=== PATIENT | female | born 1990 | race Caucasian/White ===

== ENCOUNTER 2020-05-02 07:57 | Inpatient (IN) | payer OTHER ==
[~2020-05-02] VITALS: Ht 170.2 cm; Wt 102.0 kg
[~2020-05-02 07:57] MED LIST: IRON325 M1 PO; PRENATAL MULTI1 EACH PO
--- NOTE | 2020-05-05 09:49 | NUR ---
05/05/20 0949 Michele,Lucina 0931 PT ARRIVED TO ROOM AND PT AT BEDSIDE WITH FBC RN. PT DENIES PAIN AND NAUSEA. VSS. 0943 PT REPORTS UNABLE TO MOVE LEGS OR FEET, SPINAL LEVEL T-7. BABY TO CHEST WITH FBC RN. HOB INCREASED SLIGHTLY, PT CONTINUES TO DENY NAUSEA AND PAIN. NO OTHER CONCERNS AT THIS TIME. IV INFUSING LR WITH 20 PIT, IV SITE WNL.
--- NOTE | 2020-05-06 07:46 | OR ---
[facility] [address] [place], [place] [address] Signed DATE OF OPERATION: 05/05/2020 SURGEON: Aura Bunn MD COMMERCIAL ACCOUNT EXECUTIVE: Naren Sandy MD. PREOPERATIVE DIAGNOSES: Term , previous section, right adnexal mass, preeclampsia without severe features. POSTOPERATIVE DIAGNOSES: Term , previous section, right adnexal mass, preeclampsia without severe features, delivered, right ovarian dermoid. PROCEDURE: Repeat section with low segment transverse uterine incision, lysis of adhesions, right oophorectomy. ANESTHESIA: Spinal. ESTIMATED BLOOD LOSS: 600 mL. DRAINS: Alvarez catheter. INDICATIONS AND FINDINGS: The patient is a 29-year-old female, 3, para 2 now at 37 weeks, who was admitted for repeat section for preeclampsia without severe features. Patient had a known right ovarian mass during her . She has been asymptomatic. At the time of surgery, she was found to have omental adhesions to the anterior peritoneum. The bladder peritoneum was also adhesed to the anterior wall of the uterus. The left tube and ovary were normal. The right tube was normal, but the right ovary was pretty much completely replaced by a right dermoid. She was delivered of a little boy from the ROT position via lower segment transverse incision with Apgars 8/9, wt 7'4". Electronically Signed By: AURA BUNN MD 05/06/20 0746 PATIENT NAME: REYNOLD BARTLETT OPERATIVE REPORT DATE OF : [birth year] REPORT #: [id number] PHYSICIAN: AURA BUNN MD PCP: KINGSLEY LEYVA PAC REPORT IS CONFIDENTIAL AND NOT TO BE RELEASED WITHOUT AUTHORIZATION [facility] [address] [place], [place] [address] Signed DESCRIPTION OF PROCEDURE: The patient was prepped and draped in the supine position. A repeat Pfannenstiel skin incision was made and carried down through the fascia. The incision was extended laterally. The inferior and superior fascial flaps were then created. The muscles were sharply divided and the peritoneum entered. The adhesions were immediately noted. The muscles were divided down through the pyramidalis. The peritoneum was then incised as well superiorly and inferiorly. The incision was completed bluntly. It was felt that even with the adhesions of the omentum, the Shawn could be placed. This was done and the incision on the uterus made at the upper aspect of the peritoneal reflection. The uterine wall was fairly thin. The baby was delivered with the above findings and handed off to the pediatric staff in attendance. The placenta was removed manually. The uterus was explored with a lap tape assuring no remaining fragments. The edges of the incision were identified and closed with two layers using 0 Monocryl. The first layer was a running locking stitch and the second was a vertical imbricating stitch. The abdomen was irrigated and inspected and it was just raw surfaces over the surface of the uterus. The uterine incision area was packed and the left tube and ovary were identified and were normal. The right was identified and the tube was normal, but there was a cyst approximately 4 cm in diameter. The ovarian stroma over the cyst was then incised using a knife. An attempt was made to separate the ovarian stroma from the cyst, but it was extremely thin. Clear fluid was seen to be emanating from the cyst even though it was attempted to keep it intact. As further dissection was done, it was clear this was a dermoid with hair and sebaceous material seen. There was no evidence of any normal tissue in the ovary. Because of this, the decision was made to proceed with removal. The infundibular ligament and utero-ovarian pedicle were clamped x2 and divided. This was followed by free tie of 0 Vicryl followed by suture ligature of 0 Vicryl. Following this, the abdomen was irrigated, inspected, and there were raw areas as well as some bleeding points over the peritoneal reflection. The bleeding points were controlled with cautery. This layer was then also sprayed with Tisseel. The peritoneum was identified and the omental adhesions were identified and clamped with Lydia clamps and divided. Free ties of 2-0 chromic were used to tie off the omental adhesions. An ACell graft was laid over the lower segment to aid in healing. The peritoneum was closed with a running suture of 3-0 Vicryl. The muscles were then brought together with interrupted sutures of 0 Vicryl. Bleeding points were controlled with cautery. This layer was irrigated, inspected, and good hemostasis was noted. The remaining Tisseel was sprayed over the muscles. This was followed by Acell powder to aid in healing. The fascia was closed from each angle to midline with running suture of 0 Vicryl. The subcutaneous tissue was irrigated and bleeding points controlled with cautery. The deep space was closed with interrupted sutures of 3-0 Vicryl. The skin was closed with evie. All sponge and needle counts were correct. She tolerated the procedure well. She was taken to the Electronically Signed By: AURA BUNN MD 05/06/20 0746 PATIENT NAME: REYNOLD BARTLETT OPERATIVE REPORT DATE OF : [birth year] REPORT #: [id number] PHYSICIAN: AURA BUNN MD PCP: KINGSLEY LEYVA PAC REPORT IS CONFIDENTIAL AND NOT TO BE RELEASED WITHOUT AUTHORIZATION [address] [place] [address] Signed recovery room in good condition. MD RAJAN Bray/ESVIN /[id number] cc: Naren Sandy MD Copies: NAREN SANDY MD ~ Electronically Signed By: AURA BUNN MD 05/06/20 0746 PATIENT NAME: REYNOLD BARTLETT OPERATIVE REPORT DATE OF : [birth year] REPORT #: [id number] PHYSICIAN: AURA BUNN MD PCP: KINGSLEY LEYVA PAC REPORT IS CONFIDENTIAL AND NOT TO BE RELEASED WITHOUT AUTHORIZATION
--- NOTE | 2020-05-06 07:55 | PR ---
[facility] [address] [facility] [place], [place] [address] Signed PP Progress Notes Datetime Report Generated by CAL: 05/06/2020 07:55 SUBJECTIVE: [id number] Pain: Within normal limits Nausea/Vomiting: Denies Flatus: No Vital Signs: [id number] Vital Signs: Reviewed; Within Normal Limits EXAM: [id number] Cardiovascular: Normal Respiratory: Normal Abdomen/Uterus: Abnormal Lochia: Normal Vulva/Perineum: Not Done Breasts: Not Done CVA Tenderness: Not Done Extremities: Normal Incision: Normal Progress: Normal Exam Comments: Abdomen with active BS. Fundus firm, NT @ U-1. H/H 12/35.3, WBC 12.2, plat 126k IMPRESSION/PLAN/PROCEDURES: [id number] Impression: Normal progression Other Plans: ambulate, shower Progress Notes: Doing well. Will increase activity. Signing Physician: Aura Bunn MD Copies: ~ *Electronically Signed* 05/06/20 0755 AURA BUNN MD PATIENT NAME: REYNOLD BARTLETT PROGRESS NOTE DATE OF : [birth year] PHYSICIAN: AURA BUNN MD RPT #: [id number] REPORT IS CONFIDENTIAL AND NOT TO BE RELEASED WITHOUT AUTHORIZATION
--- NOTE | 2020-05-06 15:42 | PATH ---
[facility] [address] [place], [place] [address] Signed SPECIMEN(S): A RIGHT OVARY WITH DERMOID CYST SPECIMEN SOURCE: A. RIGHT OVARY WITH DERMOID CYST CLINICAL HISTORY: Pre: Right adnexal mass, repeat . Post: Right dermoid cyst and ovary. FINAL PATHOLOGIC DIAGNOSIS: Ovary with cyst, right, oophorectomy: - Mature cystic teratoma (dermoid cyst). - Background ovary with cystic follicles. NAL:cml:C2NR MICROSCOPIC EXAMINATION: Histologic sections of all submitted blocks are examined by light microscopy. These findings, together with the gross examination, support the pathologic diagnosis. GROSS DESCRIPTION: The specimen, labeled "MH," and designated on the requisition "right ovary with dermoid cyst," is received in formalin and consists of a 39 gram cystic ovary (6.4 x 4.2 x 2.6 cm) with a pink-paez to hemorrhagic, variegated cut surface containing a yellow-paez grumous material, hair, and areas of calcification. Represent sections are some in cassettes (A1-A2). AC (under the direct supervision of a pathologist) The Gross Description was prepared using a voice recognition system. The report was reviewed for accuracy; however, sound-alike word errors, addition and/or deletions may occur. If there is any question about this report, please contact Client Services. PERFORMING LABORATORY: The technical component was performed by [employer], [address] [place] [address] (Unemployment Claims Adjudicator: Clari Maldonado MD; CLIA# [id number]). [facility], [address] [address] (CLIA# [id number]). Diagnostician: Tonie Laura MD Pathologist PATIENT NAME: REYNOLD BARTLETT PATHOLOGY DATE OF : [birth year] REPORT #: [id number] PHYSICIAN: AURELIANO PATHOLOGY PCP: KINGSLEY LEYVA REPORT IS CONFIDENTIAL AND NOT TO BE RELEASED WITHOUT AUTHORIZATION [address] [place], [place] [address] Signed Electronically Signed 05/06/2020 Copies: ~ PATIENT NAME: REYNOLD BARTLETT PATHOLOGY DATE OF : [birth year] REPORT #: [id number] PHYSICIAN: AURELIANO PATHOLOGY PCP: KINGSLEY LEYVA REPORT IS CONFIDENTIAL AND NOT TO BE RELEASED WITHOUT AUTHORIZATION
--- NOTE | 2020-05-07 09:31 | PR ---
[facility] [address] [facility] [place], [place] [address] Signed PP Progress Notes Datetime Report Generated by CAL: 05/07/2020 09:31 SUBJECTIVE: [id number] Pain: Within normal limits Nausea/Vomiting: Denies Flatus: Yes Vital Signs: [id number] Vital Signs: Reviewed Notable Details: occ mild elevation of BP EXAM: [id number] Cardiovascular: Not Done Respiratory: Not Done Abdomen/Uterus: Abnormal Lochia: Normal Vulva/Perineum: Not Done Breasts: Not Done CVA Tenderness: Not Done Extremities: Normal Incision: Not Applicable Progress: Normal Exam Comments: Abdomen with active BS. Fundus firm, NT @ U-1. IMPRESSION/PLAN/PROCEDURES: [id number] Impression: Normal progression Plan: Remove evie; Discharge Other Plans: ambulate, shower Procedures: None Progress Notes: Doing well. She is ready for D/C. Signing Physician: Aura Bunn MD Copies: ~ *Electronically Signed* 05/07/20 0931 AURA BUNN MD PATIENT NAME: REYNOLD BARTLETT PROGRESS NOTE DATE OF : [birth year] PHYSICIAN: AURA BUNN MD RPT #: [id number] REPORT IS CONFIDENTIAL AND NOT TO BE RELEASED WITHOUT AUTHORIZATION
== END 2020-05-07 10:30 | disposition home or self-care (01) | DRG 788 ==
LOC: FBC 05-05 05:35
PROVIDERS: ADMIT Obstetrics & Gynecology
PROC: 0UT00ZZ Resection of Right Ovary, Open Approach (ICD-10-PCS; 2020-05-05)
PROC: 10D00Z1 Extraction of Products of Conception, Low, Open Approach (ICD-10-PCS; principal; 2020-05-05 08:00)
DX: O34.211 Maternal care for low transverse scar from previous cesarean delivery (principal); N85.8 Other specified noninflammatory disorders of uterus; Z3A.37 37 weeks gestation of pregnancy; Z37.0 Single live birth; O14.04 Mild to moderate pre-eclampsia, complicating childbirth; O32.2XX0 Maternal care for transverse and oblique lie, not applicable or unspecified; O99.89 Other specified diseases and conditions complicating pregnancy, childbirth and the puerperium; D27.0 Benign neoplasm of right ovary; O69.81X0 Labor and delivery complicated by cord around neck, without compression, not applicable or unspecified; O99.214 Obesity complicating childbirth; E66.9 Obesity, unspecified; O26.03 Excessive weight gain in pregnancy, third trimester
CPT/HCPCS: 01961; 36415; 85027; A9270; J0690; J1885; J2001; J2274; J2405; J2590; J7121

== ENCOUNTER 2022-09-08 06:00 | Day surgery (SDC) | payer OTHER ==
[~2022-09-08] VITALS: Ht 170.2 cm; Wt 78.6 kg
[2022-09-08] MEDS ORDERED: NUVARING VAGIN1 EACH VAGINAL (06:19)
--- NOTE | 2022-09-08 07:52 | NUR ---
09/08/22 0752 Anamika Villavicencio 9305-PATIENT ARRIVED TO PACU ON 6L MASK NONAROUSABLE ORAL AIRWAY IN PLACE. RN DOING JAW THRUST TO MAINTAIN OPEN AIRWAY. SR. IVF INFUSING. JERROD PAD CDI 0750-PATIENTS HEAD REPOSITIONED TO LEFT SIDE PATIENT MAINTAING AIRWAY WITH ORAL AIRWAY IN PLACE. 6L MASK RR EVEN 100%
--- NOTE | 2022-09-08 07:57 | NUR ---
VISTED WITH PT PRIOR TO SURGERY. WAS WITH PT IN ROOM. PT EXPRESSED BEING TIRED. PT AND SHARED THEY WERE COMFORTABLE WITH PROCEDURE. NURSE CAME IN TO CHECK ON PT. PRAYED WITH UT, , AND NURSE.
--- NOTE | 2022-09-08 08:20 | NUR ---
0820: PT ARRIVES TO DS TREATMENT ROOM FROM PACU VIA STRETCHER AWAKE. PT RATES PAIN 1/10 AND "CRAMPY" AND DENIES NAUSEA. PT PROVIDED ICED WATER AND PUDDING. SPOUSE AT BEDSIDE ON ARRIVAL, DC CRITERIA EXPLAINED AND CALL LIGHT WITHIN REACH. 0857: PT USES CALL LIGHT TO ALERT RN OF URGE TO VOID. PT SITS AT SIDE OF BED PRIOR TO STANDING, DENIES ANY DIZZINESS OR NAUSEA WITH POSITION CHANGE. STEADY GAIT WITH RN ASSIST TO BATHROOM. PT ABLE TO VOID 700 MLS RED URINE WITH NO CLOTS PRESENT, PROVIDED NEW JERROD PAD AND MESH PANTIES. PT BACK TO STRETCHER AND PROVIDED WARM BLANKETS. CALL LIGHT WITHIN REACH, SPOUSE REMAINS AT BEDSIDE.
[2022-09-08] MEDS ORDERED: IBUPROFEN800 MG PO (08:49)
[2022-09-08] MEDS ORDERED: HYDROCODON-ACE1 EA10 PO (08:49)
--- NOTE | 2022-09-08 10:03 | NUR ---
0927: PT CONT TO DENY NAUSEA, TOLERATES PO. RATES PAIN 1/10 AND STATES, "MORE SO DISCOMFORT THAN PAIN." PT DRESSES SELF WITH SPOUSE IN ROOM AND OPENS CURTAIN WHEN FINISHED. DC INSTRUCTIONS PRESENTED VERBALLY AND WRITTEN TO PT AND SPOUSE. PT AWARE OF NEED TO TAKE PAIN SCRIPT TO PHARMACY TO HAVE FILLED. PT DC FROM DS TREATMENT ROOM VIA WC TO SPOUSE WAITING IN PERSONAL VEHICLE AT MAIN HOSPITAL ENTRANCE TO HOME.
--- NOTE | 2022-09-09 16:15 | PATH ---
[facility] [address] [place], [place] [address] Signed SPECIMEN(S): A ENDOMETRIAL CURETTINGS AND POLYP SPECIMEN SOURCE: A. ENDOMETRIAL CURETTINGS AND POLYP CLINICAL HISTORY: Menometrorrhagia. Hysteroscopy DC. FINAL PATHOLOGIC DIAGNOSIS: Endometrial curettings and polyp: - Benign early secretory endometrium, negative for atypical features or evidence of malignancy. - Focal polypoid endometrium with prominent fragments of benign muscularis propria. JVR:nathaly:C2NR MICROSCOPIC EXAMINATION: Histologic sections of all submitted blocks are examined by light microscopy. These findings, together with the gross examination, support the pathologic diagnosis. GROSS DESCRIPTION: The specimen, labeled "MH, endometrial curettings and polyp," is received in formalin and consists of irregular shaped, pink-paez, membranous tissue fragments that aggregate measure 3.0 x 2.5 x 0.5 cm. Specimen is entirely submitted in cassettes (A1-A2). JS (under the direct supervision of a pathologist) The Gross Description was prepared using a voice recognition system. The report was reviewed for accuracy; however, sound-alike word errors, addition and/or deletions may occur. If there is any question about this report, please contact Client Services. PERFORMING LABORATORY: The technical component was performed by [employer], [address] [place] [id number] (CLIA# [id number]). Professional interpretation was performed by [facility], [address] [place] [id number] (CLIA#: [id number]). Diagnostician: Lc Nicholson MD Pathologist Electronically Signed 09/09/2022 PATIENT NAME: REYNOLD BARTLETT PATHOLOGY DATE OF : [birth year] REPORT #: [id number] PHYSICIAN: AURELIANO PATHOLOGY PCP: KINGSLEY LEYVA PAC REPORT IS CONFIDENTIAL AND NOT TO BE RELEASED WITHOUT AUTHORIZATION [address] [address] Signed Copies: ~ PATIENT NAME: REYNOLD BARTLETT PATHOLOGY DATE OF : [birth year] REPORT #: [id number] PHYSICIAN: AURELIANO PATHOLOGY PCP: KINGSLEY LEYVA PAC REPORT IS CONFIDENTIAL AND NOT TO BE RELEASED WITHOUT AUTHORIZATION
--- NOTE | 2022-09-12 18:24 | OR ---
[facility] [address] [facility] [place], [place] [address] Signed DATE OF OPERATION: 09/08/2022 SURGEON: Aura Bunn MD PREOPERATIVE DIAGNOSIS: Menometrorrhagia. POSTOPERATIVE DIAGNOSIS: Menometrorrhagia, pending pathology. PROCEDURE: Hysteroscopy with resection of endometrial lesions. ANESTHESIA: General LMA. ESTIMATED BLOOD LOSS: Minimal. DRAINS: None. INDICATIONS AND FINDINGS: The patient is a 32-year-old female, who has been using the NuvaRing for control and had done well for quite some time but recently developed abnormal bleeding. Ultrasound was done, which showed quite a bit of thickening of the endometrium. It was felt this probably represented a polyp. At the time of surgery, the uterus was normal size and no adnexal masses were appreciated. The uterus sounded to 9 cm. On hysteroscopy, there were polypoid lesions across the anterior and posterior fundus and around both of the tubal orifices. DESCRIPTION OF PROCEDURE: The patient was prepped and draped in the dorsal lithotomy position. A weighted speculum was placed. The anterior lip of the cervix was visualized and grasped with a single-tooth tenaculum. The cavity was sounded to 9 cm. The endocervical canal was then dilated to a #8 dilator. MyoSure device was then placed. The uterus was evaluated with the above findings. The MyoSure Lite was then introduced and the polypoid lesions across the anterior and posterior fundus were resected. Following this, it did appear that the cavity was fairly regular and clean. The procedure was then terminated. The instruments removed from the uterus. The tenaculum was removed. There was some Electronically Signed By: AURA BUNN MD 09/12/22 1824 PATIENT NAME: REYNOLD BARTLETT OPERATIVE REPORT DATE OF : [birth year] REPORT #: [id number] PHYSICIAN: AURA BUNN MD PCP: RADHA COSTA REPORT IS CONFIDENTIAL AND NOT TO BE RELEASED WITHOUT AUTHORIZATION [facility] [address] [place] [address] Signed bleeding from the tenaculum sites, which did not respond to pressure. Because of this, eenoux-ja-azmni sutures of 0-chromic were placed to control bleeding from the tenaculum sites. The patient was taken to the recovery room in good condition. All sponge and needle counts were correct. Aura Bunn MD PJW/MODL /[id number] cc: Radha Costa PA-C Copies: RADHA COSTA ~ Electronically Signed By: AURA BUNN MD 09/12/22 1824 PATIENT NAME: REYNOLD BARTLETT OPERATIVE REPORT DATE OF : [birth year] REPORT #: [id number] PHYSICIAN: AURA BUNN MD PCP: RADHA COSTA PAC REPORT IS CONFIDENTIAL AND NOT TO BE RELEASED WITHOUT AUTHORIZATION
== END 2022-09-08 09:45 | disposition home or self-care (01) ==
LOC: DS 06:00
PROVIDERS: ATTEND Obstetrics & Gynecology
PROC: 0UDB8ZZ Extraction of Endometrium, Via Natural or Artificial Opening Endoscopic (ICD-10-PCS; principal; 2022-09-08 07:30)
DX: N92.1 Excessive and frequent menstruation with irregular cycle (principal); N84.0 Polyp of corpus uteri
CPT/HCPCS: J1100; J1885; J2250; J2405; J2704; J2765; J3010; J7121